=== PATIENT | female | born 1995 | race Caucasian/White ===

== ENCOUNTER 2018-01-18 14:05 | Emergency (ER) | payer OTHER ==
[2018-01-18] MEDS ORDERED: ONDANSETRON 4 MG TAB.RAPDIS ONE (14:14)
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
[2018-01-18] MEDS ORDERED: ONDANSETRON 4 MG TAB.RAPDIS PO ONE (14:55)
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
[2018-01-18 15:25] LABS: APPEARANCE,URINE SLIGHTLY-CLOUDY; BILIRUBIN,URINE NEGATIVE (NEGATIVE); COLOR,URINE YELLOW; GLUCOSE, URINE NEGATIVE (NEGATIVE); KETONES,URINE NEGATIVE (NEGATIVE); LEUKOCYTE ESTERASE,URINE NEGATIVE (NEGATIVE); NITRITE,URINE NEGATIVE (NEGATIVE); PROTEIN,URINE 30 mg/dL (NEGATIVE); URINE SPECIFIC GRAVITY 1.025; UROBILINOGEN,URINE NEGATIVE mg/dL (<2.0)
[2018-01-18 16:03] VITALS: BP 132/68
== END 2018-01-18 16:20 | disposition home or self-care (01) ==
LOC: ER 14:05
DX: S06.0X9A Concussion with loss of consciousness of unspecified duration, initial encounter (principal); M25.512 Pain in left shoulder; Y04.2XXA Assault by strike against or bumped into by another person, initial encounter; Y92.009 Unspecified place in unspecified non-institutional (private) residence as the place of occurrence of the external cause; H53.8 Other visual disturbances; R51 Headache; R11.0 Nausea; F31.9 Bipolar disorder, unspecified; Z79.899 Other long term (current) drug therapy; Z97.5 Presence of (intrauterine) contraceptive device; Z88.0 Allergy status to penicillin
CPT/HCPCS: 99284; 81025; 81001; 71046; 73030; 70450; S0119

== ENCOUNTER 2018-12-07 12:16 | Emergency (ER) | payer OTHER ==
[2018-12-07] MEDS ORDERED: ONDANSETRON HCL INJ/PF 4 MG/2 ML SDV IV ONE (12:53)
[2018-12-07] MEDS ORDERED: NORMAL SALINE 1000 ML 1,000 ML IV ONE ×2 (12:53→16:24)
[2018-12-07] MEDS ORDERED: CYCLOBENZAPRINE HCL 10 MG TABLET PO ONE (12:55)
--- NOTE | 2018-12-07 12:57 | ER Document Report ---
ED Medical Screen (RME) - General Chief Complaint: Sinus Pain Stated Complaint: HEADACHE Time Seen by Provider: 12/07/18 12:45 Mode of Arrival: Ambulatory Information source: Patient Notes: 23-year-old female presents the emergency department with complaints of headache, neck pain, nausea, vomiting, sinus pressure, rhinorrhea, sore throat, dry cough. Patient states that symptoms have been present for a week. She went to urgent care 2 days ago and was diagnosed with sinusitis. She started on Mucinex and doxycycline. Patient states that she is been taking the medication as directed but is not improving. Patient states that she when she woke up this morning she had neck pain. Pain is located in the trapezius muscle bilaterally. Patient went back to urgent care and was told to go to the emergency department for a further evaluation. Patient denies any chest pain, shortness of breath, abdominal pain. I have greeted and performed a rapid initial assessment of this patient. A comprehensive ED assessment and evaluation of the patient, analysis of test results and completion of the medical decision making process will be conducted by additional ED providers. PHYSICAL EXAMINATION: GENERAL: Well-appearing, well-nourished and in no acute distress. HEAD: Atraumatic, normocephalic. EYES: Pupils equal round extraocular movements intact, conjunctiva are normal. Bilateral maxillary sinus tenderness to palpation. Frontal sinus tenderness to palpation. ENT: Nares patent NECK: Bilateral trapezius muscle tenderness to palpation. LUNGS: No respiratory distress Musculoskeletal: Normal range of motion NEUROLOGICAL: Normal speech, normal gait. TRAVEL OUTSIDE OF THE [place] IN LAST 30 DAYS: No - Related Data Allergies/Adverse Reactions: amoxicillin Allergy (Verified 01/18/18 14:38) Past Medical History - Social History Chew tobacco use (# tins/day): No Frequency of alcohol use: None Drug Abuse: None Renal/ Medical History: Denies: Hx Peritoneal Dialysis Psychiatric Medical History: Reports: Hx Bipolar Disorder Physical Exam - Vital signs Vitals: Temp Pulse Resp BP Pulse Ox 97.7 F 77 18 139/82 H 100 12/07/18 12:24 12/07/18 12:24 12/07/18 12:24 12/07/18 12:24 12/07/18 12:24 Course - Vital Signs Vital signs: Temp Pulse Resp BP Pulse Ox 97.7 F 77 18 139/82 H 100 12/07/18 12:24 12/07/18 12:24 12/07/18 12:24 12/07/18 12:24 12/07/18 12:24
[2018-12-07 13:39] LABS: ABSOLUTE EOSINOPHILS # (AUTO) 0.1 10^3/uL (0.0-0.6); ABSOLUTE LYMPHOCYTES (AUTO) 1.4 10^3/uL (0.5-4.7); ABSOLUTE MONOCYTES (AUTO) 0.7 10^3/uL (0.1-1.4); ABSOLUTE NEUT (AUTO) 7.1 10^3/uL (1.7-8.2); BASOPHILS % (AUTO) 0.4 % (0-2); EOSINOPHILS % (AUTO) 0.8 % (0-6); HEMATOCRIT 41.3 % (36.0-47.0); LYMPHOCYTES % (AUTO) 14.9 % (13-45); MEAN CORPUSCULAR HEMOGLOBIN 29.9 pg (27.0-33.4); MEAN CORPUSCULAR VOLUME 88 fl (80-97); MONOCYTES % (AUTO) 7.9 % (3-13); PLATELET COUNT 336 10^3/uL (150-450); RED CELL DISTRIBUTION WIDTH 13.5 % (11.5-14.0); TOTAL CELLS COUNTED % (AUTO) 100 %; WHITE BLOOD COUNT 9.3 10^3/uL (4.0-10.5)
[2018-12-07 13:56] LABS: A TYPE INFLUENZA AG NEGATIVE (NEGATIVE); B INFLUENZA AG NEGATIVE (NEGATIVE)
[2018-12-07 14:04] LABS: ALANINE AMINOTRANSFERASE 34 U/L (9-52); ALBUMIN 4.5 g/dL (3.5-5.0); ALKALINE PHOSPHATASE 109 U/L (38-126); ANION GAP 7 (5-19); ASPARTATE AMINO TRANSFERASE 31 U/L (14-36); BILIRUBIN,DIRECT 0.1 mg/dL (0.0-0.4); BILIRUBIN,TOTAL 0.6 mg/dL (0.2-1.3); BLOOD UREA NITROGEN 8 mg/dL (7-20); CARBON DIOXIDE 30 mmol/L (22-30); CHLORIDE 106 mmol/L (98-107); GLUCOSE 95 mg/dL (75-110); POTASSIUM 4.5 mmol/L (3.6-5.0); SODIUM 142.8 mmol/L (137-145); TOTAL PROTEIN 7.1 g/dL (6.3-8.2)
[2018-12-07 14:09] LABS: APPEARANCE,URINE CLEAR; BILIRUBIN,URINE NEGATIVE (NEGATIVE); COLOR,URINE YELLOW; GLUCOSE, URINE NEGATIVE (NEGATIVE); KETONES,URINE NEGATIVE (NEGATIVE); LEUKOCYTE ESTERASE,URINE NEGATIVE (NEGATIVE); NITRITE,URINE NEGATIVE (NEGATIVE); PROTEIN,URINE NEGATIVE (NEGATIVE); URINE SPECIFIC GRAVITY 1.012; UROBILINOGEN,URINE NEGATIVE mg/dL (<2.0)
[2018-12-07] MEDS ORDERED: KETOROLAC TROMETHAMINE INJ/PF 30 MG/1 ML SDV IV ONE (16:22)
[2018-12-07] MEDS ORDERED: DIAZEPAM 5 MG TABLET PO ONE (16:22)
--- NOTE | 2018-12-07 16:31 | ER Document Report ---
ED General - General Chief Complaint: Sinus Pain Stated Complaint: HEADACHE Time Seen by Provider: 12/07/18 12:45 Mode of Arrival: Ambulatory TRAVEL OUTSIDE OF THE [place] IN LAST 30 DAYS: No - HPI Patient complains to provider of: Pressure and pain in the sinuses, toothache, headache, sore throat Onset: Other - 2 days ago Onset/Duration: Sudden Quality of pain: Throbbing Severity: Severe Context: Acute onset of the symptoms specified 2 days ago. Patient was seen in the urgent care clinic and was prescribed doxycycline for sinusitis. Patient is complaining of neck pain, but she has had neck pain for the past couple of weeks. She also has a history of having pain in her neck. She does not report any fevers or shaking chills. Associated symptoms: Body/muscle aches, Headache, Sore throat. denies: Chills, Fever Exacerbated by: Denies Relieved by: Denies Similar symptoms previously: No Recently seen / treated by doctor: No Notes: 23-year-old female with 2 days of headache, sore throat, neck pain, malaise, and sinus pain with brown colored rhinorrhea seen by urgent care and put on doxycycline for a sinus infection. Patient is complaining of worsening neck pain today. She has had neck pain for the couple of weeks. History of chronic neck problems. - Related Data Allergies/Adverse Reactions: amoxicillin Allergy (Verified 01/18/18 14:38) Past Medical History - General Information source: Patient - Social History Smoking Status: Current Every Day Smoker Chew tobacco use (# tins/day): No Frequency of alcohol use: None Drug Abuse: None Family History: None, Reviewed & Not Pertinent Patient has suicidal ideation: No Patient has homicidal ideation: No Renal/ Medical History: Denies: Hx Peritoneal Dialysis Psychiatric Medical History: Reports: Hx Bipolar Disorder Review of Systems - Review of Systems Notes: Constitutional: No fevers. No chills. EENT: Positive sinus pain and pressure. Brown rhinorrhea Cardiovascular: No chest pain. No palpitations. Respiratory: No cough. No shortness of breath. No respiratory distress. Gastrointestinal: No abdominal pain. No nausea, vomiting, or diarrhea. Genitourinary: Atraumatic. No lesions. No pain. No discharge. Musculoskeletal: Atraumatic. No swelling. No deformities. Skin: No rash or lesions. Lymphatic: No swollen lymph nodes. Neurologic: No headache. No syncope. Psychiatric: No suicidal or homicidal ideation. Physical Exam - Vital signs Vitals: Temp Pulse Resp BP Pulse Ox 97.7 F 77 18 139/82 H 100 12/07/18 12:24 12/07/18 12:24 12/07/18 12:24 12/07/18 12:24 12/07/18 12:24 - Notes Notes: General: Well-developed, well-nourished. In no acute distress. Non-toxic appearing. Looks malaised Cardiac: Well-perfused. Regular rate and rhythm. No murmurs, rubs, or gallops. Pulmonary: No respiratory distress. No cyanosis. Bilateral lung johnson are clear to auscultation. Abdominal: Non-distended. Non-rigid. Bowels sounds are present in all four quadrants. No guarding or rebound. HEENT: Head is atraumatic. Conjunctivae not reddened. No tearing. PERRL. EOMI. Orbits atraumatic. No periorbital swelling or erythema. Oropharynx is without erythema, swelling, or exudates. Axillary sinuses are tender Neck: Supple. No adenopathy. No meningismus. Dermatologic: Warm with good turgor. No rash. Atraumatic. Chest: Atraumatic. No chest wall tenderness to palpation. Musculoskeletal: Moves all extremities well. No range of motion deficits. no muscular or joint tenderness. No paraspinal muscle tenderness. no midline spinal tenderness or step-off. Genitourinary: Examination deferred Neurologic: No gross neurologic deficits. Psychiatric: Normal mood. Course - Re-evaluation Re-evalutation: 12/07/18 16:35 Patient has been evaluated. Appropriate orders have been placed. Patient will be routinely reassessed as results start to come in. 12/07/18 17:39 Patient is feeling significantly better after some Toradol and Valium which seems to be helping her neck stiffness. She is moving around freely now. All of her labs are negative. I do not think this patient has meningitis. Will discharge home - Vital Signs Vital signs: Temp Pulse Resp BP Pulse Ox 97.7 F 77 18 139/82 H 100 12/07/18 12:24 12/07/18 12:24 12/07/18 12:24 12/07/18 12:24 12/07/18 12:24 - Laboratory Result Diagrams: 12/07/18 13:15 12/07/18 13:15 Discharge - Discharge Clinical Impression: Viral syndrome Condition: Good Disposition: HOME, SELF-CARE Instructions: Viral Syndrome ([facility]) Prescriptions: Diazepam [Valium 5 mg Tablet] 5 mg PO Q8HP PRN #12 tablet PRN Reason: Naproxen 500 mg PO BID 5 Days #10 tablet Referrals: [facility] [Provider Group] - Follow up tomorrow
[2018-12-07 18:28] VITALS: BP 128/74
== END 2018-12-07 18:34 | disposition home or self-care (01) ==
LOC: ER 12:16
DX: B34.9 Viral infection, unspecified (principal); R51 Headache; K08.89 Other specified disorders of teeth and supporting structures; J02.9 Acute pharyngitis, unspecified; M54.2 Cervicalgia; M79.10 Myalgia, unspecified site; F17.200 Nicotine dependence, unspecified, uncomplicated
CPT/HCPCS: 99283; 96361; 96374; 96375; 36415; 87070; 87880; 85025; 81025; 86308; 80053; 81001; 87804; J1885; J2405; J7030